=== PATIENT | female | born 1955 | race Caucasian/White ===

== ENCOUNTER 2024-05-22 13:40 | Outpatient (CLI) | payer MEDICARE | END 2024-05-22 13:41 | disposition home or self-care (01) | LOC: CSHMAMMO 13:40 | PROVIDERS: ATTEND Family Medicine | DX: Z12.31 Encounter for screening mammogram for malignant neoplasm of breast (principal); M85.80 Other specified disorders of bone density and structure, unspecified site; Z78.0 Asymptomatic menopausal state | CPT/HCPCS: 77063; 77067; 77080 ==